=== PATIENT | male | born 1985 | race Hispanic/Latino ===

== ENCOUNTER 2016-12-09 10:12 | Emergency (ER) | payer OTHER ==
[~2016-12-09] VITALS: Ht 152.4 cm; Wt 63.0 kg
[~2016-12-09 10:12] MED LIST: ADVIL200 MG OR; AMOXICILLIN500 MG PO; AMOXIL875 MG OR; BACTRIM DS1 TAB OR; BENADRYL 50MG C50 MG OR; CIPRO500 MG OR; LORTAB 5 OR; MEDDOSEPAK OR; MIRALAX3350 N1 PO; NAPROSYN375 MG PO; NAPROSYN500 MG OR; NAPROSYN500 MG PO; NO MEDS; ZOVIRAX200 MG OR
[2016-12-09] MEDS ORDERED: MOTRIN800 MG PO (11:11)
[2016-12-09] MEDS ORDERED: BACTRIM DS1 TAB PO (11:11)
[2016-12-09 11:15] VITALS: BP 121/85
== END 2016-12-09 11:23 | disposition home or self-care (01) | DRG 603 ==
LOC: ED 10:12
PROC: 0H9GXZZ Drainage of Left Hand Skin, External Approach (ICD-10-PCS; principal; 2016-12-09)
PROC: 0H9EXZZ Drainage of Left Lower Arm Skin, External Approach (ICD-10-PCS; 2016-12-09)
DX: L02.414 Cutaneous abscess of left upper limb (principal); L02.512 Cutaneous abscess of left hand

== ENCOUNTER 2017-01-11 00:07 | Emergency (ER) | payer OTHER ==
[~2017-01-11] VITALS: Ht 152.4 cm; Wt 60.0 kg
[~2017-01-11 00:07] MED LIST changes: +BACTRIM DS1 TAB PO; +MOTRIN800 MG PO
[2017-01-11 01:25] LABS: HEMATOCRIT 42.3 % (39.0-50.0); HEMOGLOBIN 14.5 g/dl (14.0-18.0); IMMATURE GRANULOCYTES 0.4 % (0.0-1.0); MEAN CELL VOLUME 82.1 fL CALC (80.0-100.0); MEAN CORPUSCULAR HGB 28.2 pG CALC (26.0-32.0); MEAN CORPUSCULAR HGB CONC 34.3 g/L CALC (32.0-36.0); NEUT# 8.56 thou/uL (1.82-7.42); RED BLOOD COUNT 5.15 mill/uL (4.70-6.10); RED CELL DISTRI WIDTH 12.7 % (11.5-15.5)
[2017-01-11 01:44] LABS: ALBUMIN 4.2 g/dL (3.2-5.0); ALKALINE PHOSPHATASE 70 u/l (38-126); ANION GAP 16 (6-22 (CALC)); BILIRUBIN, TOTAL 0.8 mg/dL (0.0-1.4); BUN 13 mg/dL (9-20); BUN/CREATININE RATIO 12 (12-20 (CALC)); CALCIUM 9.1 mg/dL (8.4-10.2); CARBON DIOXIDE 25 mmol/l (22-30); CHLORIDE 108 mmol/l (95-108); CREATININE 1.1 mg/dL (0.7-1.3); GFR > 60 ML/MIN (>=60 (CALC)); GFR FOR AFR.AMER. > 60 ML/MIN (>=60 (CALC)); GLUCOSE 86 mg/dL (75-110); POTASSIUM 3.8 mmol/l (3.5-5.1); SGOT/AST 34 u/l (17-59); SGPT/ALT 51 u/l (21-72); SODIUM 145 mmol/l (137-146); TOTAL PROTEIN 7.4 g/dL (6.3-8.2)
[2017-01-11 01:46] LABS: ETHYL ALCOHOL < 10 mg/dl (0-30)
[2017-01-11 03:22] LABS: URINE BILIRUBIN - DIPSTICK NEGATIVE (NEGATIVE); URINE BLOOD DIPSTICK NEGATIVE (NEGATIVE); URINE CLARITY CLEAR; URINE COLOR YELLOW; URINE GLUCOSE - DIPSTICK NEGATIVE (NEGATIVE); URINE KETONE NEGATIVE (NEGATIVE); URINE LEUK ESTERASE NEGATIVE (NEGATIVE); URINE NITRITE - DIPSTICK NEGATIVE (Negative); URINE PROTEIN - DIPSTICK NEGATIVE (NEG-TRACE); URINE SPECIFIC GRAVITY 1.025; URINE UROBILINOGEN - DIPSTICK 0.2 E.U./dL (0.2)
[2017-01-11 03:26] LABS: BARBITURATES NEGATIVE (NEGATIVE); COCAINE POSITIVE (NEGATIVE); METHADONE NEGATIVE (NEGATIVE); OXCYCODONE NEGATIVE (NEGATIVE); TETRAHYDROCANNABIONOL NEGATIVE (NEGATIVE); TRICYLIC ANTIDEPRESSANTS NEGATIVE (NEGATIVE)
[2017-01-11 14:31] VITALS: BP 111/74
== END 2017-01-11 14:00 | DRG 918 ==
LOC: ED 00:07
PROVIDERS: Emergency Medicine
DX: T44.3X2A Poisoning by other parasympatholytics [anticholinergics and antimuscarinics] and spasmolytics, intentional self-harm, initial encounter (principal); T43.292A Poisoning by other antidepressants, intentional self-harm, initial encounter; Y92.009 Unspecified place in unspecified non-institutional (private) residence as the place of occurrence of the external cause

== ENCOUNTER 2017-04-13 08:39 | Emergency (ER) | payer OTHER ==
[~2017-04-13] VITALS: Ht 152.4 cm; Wt 62.0 kg
[2017-04-13] MEDS ORDERED: PERCOCET 5/321 COMBO PO (08:58)
[2017-04-13] MEDS ORDERED: CLEOCIN300 MG PO (08:59)
[2017-04-13 09:10] VITALS: BP 119/57
== END 2017-04-13 09:10 | disposition home or self-care (01) | DRG 159 ==
LOC: ED 08:39
DX: K08.89 Other specified disorders of teeth and supporting structures (principal)

== ENCOUNTER 2017-05-22 13:08 | Emergency (ER) | payer OTHER ==
[~2017-05-22] VITALS: Ht 152.4 cm; Wt 56.2 kg
[~2017-05-22 13:08] MED LIST changes: +CLEOCIN300 MG PO; +PERCOCET 5/321 COMBO PO
[2017-05-22] MEDS ORDERED: MOTRIN800 MG PO (13:42)
[2017-05-22 14:33] VITALS: BP 125/55
== END 2017-05-22 14:36 | disposition home or self-care (01) | DRG 605 ==
LOC: ED 13:08
DX: S90.112A Contusion of left great toe without damage to nail, initial encounter (principal); W22.8XXA Striking against or struck by other objects, initial encounter; Y93.89 Activity, other specified; Y92.89 Other specified places as the place of occurrence of the external cause

== ENCOUNTER 2017-11-09 22:38 | Emergency (ER) | payer OTHER ==
[~2017-11-09] VITALS: Ht 152.4 cm; Wt 63.6 kg
[2017-11-09 23:34] VITALS: BP 112/73
== END 2017-11-09 23:34 | DRG 897 ==
LOC: ED 22:38
DX: F10.10 Alcohol abuse, uncomplicated (principal); Z02.89 Encounter for other administrative examinations

== ENCOUNTER 2019-06-30 22:28 | Emergency (ER) | payer SELFPAY ==
[~2019-06-30] VITALS: Ht 152.4 cm; Wt 65.9 kg
[2019-06-30 23:01] LABS: HEMATOCRIT 41.2 % (39.0-50.0); HEMOGLOBIN 14.3 g/dl (14.0-18.0); IMMATURE GRANULOCYTES 0.3 % (0.0-5.0); MEAN CORPUSCULAR HGB 27.8 pG CALC (26.0-32.0); MEAN CORPUSCULAR HGB CONC 34.7 g/L CALC (32.0-36.0); NEUT# 7.46 thou/uL (1.82-7.42); RED BLOOD COUNT 5.15 mill/uL (4.70-6.10); RED CELL DISTRI WIDTH 12.1 % (11.5-15.5)
[2019-06-30 23:18] LABS: ALBUMIN 4.2 g/dL (3.2-5.0); ALKALINE PHOSPHATASE 78 u/l (38-126); ANION GAP 13 (6-22 (CALC)); BILIRUBIN, TOTAL 0.7 mg/dL (0.0-1.4); BUN 9 mg/dL (9-20); BUN/CREATININE RATIO 11 (12-20 (CALC)); CARBON DIOXIDE 25 mmol/l (22-30); CHLORIDE 107 mmol/l (95-108); CREATININE 0.8 mg/dL (0.7-1.3); ETHYL ALCOHOL 0 mg/dl (0-30); GFR > 60 ML/MIN (>=60 (CALC)); GFR FOR AFR.AMER. > 60 ML/MIN (>=60 (CALC)); POTASSIUM 3.9 mmol/l (3.5-5.1); SGOT/AST 22 u/l (17-59); SODIUM 142 mmol/l (137-146); TOTAL PROTEIN 8.2 g/dL (6.3-8.2)
[2019-07-01 00:29] LABS: URINE BILIRUBIN - DIPSTICK NEGATIVE (NEGATIVE); URINE BLOOD DIPSTICK NEGATIVE (NEGATIVE); URINE COLOR YELLOW; URINE GLUCOSE - DIPSTICK NEGATIVE (NEGATIVE); URINE KETONE NEGATIVE (NEGATIVE); URINE LEUK ESTERASE NEGATIVE (NEGATIVE); URINE NITRITE - DIPSTICK NEGATIVE (Negative); URINE PH 6.5 (4.5-8.0); URINE PROTEIN - DIPSTICK NEGATIVE (NEG-TRACE); URINE UROBILINOGEN - DIPSTICK >=8.0 E.U./dL (0.2)
[2019-07-01 00:31] LABS: BARBITURATES NEGATIVE (NEGATIVE); COCAINE POSITIVE (NEGATIVE); METHADONE NEGATIVE (NEGATIVE); OXCYCODONE NEGATIVE (NEGATIVE); TETRAHYDROCANNABIONOL NEGATIVE (NEGATIVE); TRICYLIC ANTIDEPRESSANTS NEGATIVE (NEGATIVE)
[2019-07-01] MEDS ORDERED: TEGRETOL XR400 MG PO (02:01)
[2019-07-01] MEDS ORDERED: VALPROIC ACD250 M3 PO (02:01)
[2019-07-01 02:34] VITALS: BP 111/85
== END 2019-07-01 02:41 | disposition home or self-care (01) | DRG 101 ==
LOC: ED 22:28
PROVIDERS: Emergency Medicine
DX: R56.9 Unspecified convulsions (principal); F31.9 Bipolar disorder, unspecified; T42.1X6A Underdosing of iminostilbenes, initial encounter; T42.6X6A Underdosing of other antiepileptic and sedative-hypnotic drugs, initial encounter; Z91.128 Patient's intentional underdosing of medication regimen for other reason

== ENCOUNTER 2020-09-18 16:46 | Emergency (ER) | payer SELFPAY ==
[~2020-09-18] VITALS: Ht 152.4 cm; Wt 59.1 kg
[~2020-09-18 16:46] MED LIST changes: +TEGRETOL XR400 MG PO; +VALPROIC ACD250 M3 PO
[2020-09-18 18:18] LABS: HEMATOCRIT 43.2 % (39.0-50.0); HEMOGLOBIN 14.7 g/dl (14.0-18.0); IMMATURE GRANULOCYTES 0.5 % (0.0-5.0); MEAN CELL VOLUME 83.6 fL CALC (80.0-100.0); MEAN CORPUSCULAR HGB 28.4 pG CALC (26.0-32.0); NEUT# 12.14 thou/uL (1.82-7.42); RED BLOOD COUNT 5.17 mill/uL (4.70-6.10); RED CELL DISTRI WIDTH 13.2 % (11.5-15.5)
[2020-09-18 18:38] LABS: ALBUMIN 4.3 g/dL (3.2-5.0); ALKALINE PHOSPHATASE 81 u/l (38-126); ANION GAP 12 (6-22 (CALC)); BILIRUBIN, TOTAL 0.6 mg/dL (0.0-1.4); BUN 15 mg/dL (9-20); BUN/CREATININE RATIO 19 (12-20 (CALC)); CARBON DIOXIDE 22 mmol/l (22-30); CHLORIDE 104 mmol/l (95-108); CREATININE 0.8 mg/dL (0.7-1.3); GFR > 60 ML/MIN (>=60 (CALC)); GFR FOR AFR.AMER. > 60 ML/MIN (>=60 (CALC)); POTASSIUM 3.7 mmol/l (3.5-5.1); SGOT/AST 36 u/l (17-59); SODIUM 135 mmol/l (137-146); TOTAL PROTEIN 7.3 g/dL (6.3-8.2)
[2020-09-18 18:58] VITALS: BP 123/89
== END 2020-09-18 18:58 | DRG 87 ==
LOC: ED 16:46
PROVIDERS: Family Medicine
DX: S06.4X1A Epidural hemorrhage with loss of consciousness of 30 minutes or less, initial encounter (principal); S01.91XA Laceration without foreign body of unspecified part of head, initial encounter; F31.9 Bipolar disorder, unspecified; Y00.XXXA Assault by blunt object, initial encounter
CPT/HCPCS: J1953

== ENCOUNTER 2020-10-14 17:55 | Emergency (ER) | payer SELFPAY ==
[~2020-10-14] VITALS: Ht 152.4 cm; Wt 61.0 kg
[2020-10-14 18:45] VITALS: BP 126/78
== END 2020-10-14 18:45 | disposition home or self-care (01) | DRG 950 ==
LOC: ED 17:55
DX: S01.90XD Unspecified open wound of unspecified part of head, subsequent encounter (principal); X58.XXXD Exposure to other specified factors, subsequent encounter

== ENCOUNTER 2021-03-15 10:54 | Emergency (ER) | payer SELFPAY ==
[~2021-03-15] VITALS: Ht 152.4 cm; Wt 60.0 kg
[2021-03-15 12:25] VITALS: BP 109/65
== END 2021-03-15 12:30 | disposition home or self-care (01) | DRG 153 ==
LOC: ED 10:54
DX: J06.9 Acute upper respiratory infection, unspecified (principal); F31.9 Bipolar disorder, unspecified; Z20.822 Contact with and (suspected) exposure to COVID-19

== ENCOUNTER 2022-07-16 15:56 | Emergency (ER) | payer SELFPAY ==
[2022-07-16 16:34] VITALS: BP 128/77
[2022-07-16 17:01] VITALS: BP 106/71
[2022-07-16 17:15] VITALS: BP 106/71
== END 2022-07-16 17:15 | disposition home or self-care (01) | DRG 951 ==
LOC: ED 15:56 → LWOBS 17:11 → ED 17:11
DX: Z53.29 Procedure and treatment not carried out because of patient's decision for other reasons (principal)

== ENCOUNTER 2022-11-13 13:25 | Emergency (ER) | payer SELFPAY ==
[~2022-11-13] VITALS: Ht 152.4 cm; Wt 63.5 kg
[2022-11-13] VITALS (13 sets, daily range): BP systolic 94–112; BP diastolic 46–83
== END 2022-11-13 17:35 | disposition home or self-care (01) | DRG 563 ==
LOC: ED 13:25
PROC: 2W3LX1Z Immobilization of Right Lower Extremity using Splint (ICD-10-PCS; principal; 2022-11-13)
DX: S93.401A Sprain of unspecified ligament of right ankle, initial encounter (principal); W50.2XXA Accidental twist by another person, initial encounter

== ENCOUNTER 2024-10-01 19:18 | Emergency (ER) | payer SELFPAY ==
[2024-10-01] VITALS (9 sets, daily range): BP systolic 99–117; BP diastolic 65–82
[~2024-10-01] VITALS: Ht 152.4 cm; Wt 61.0 kg
[~2024-10-01 19:18] MED LIST changes: +AMOX/K CLAV875 M1 PO
[2024-10-01] MEDS ORDERED: SODIUM CHLORIDE 0.9% 1,000 ML IV ONE (19:55)
[2024-10-01] MEDS ORDERED: ONDANSETRON HCl 4 MG/2 ML SDV IV ONE (19:55)
[2024-10-01] MEDS ORDERED: KETOROLAC TROMETHAMINE 30 MG/ML SDV IV ONE (19:55)
[2024-10-01 20:18] LABS: BASO% 0.3 % (0-3); EOS% 12.9 % (0-8); HEMATOCRIT 44.1 % (39.0-50.0); HEMOGLOBIN 15.5 g/dl (14.0-18.0); IMMATURE GRANULOCYTES 0.1 % (0.0-5.0); LYMPH% 18.1 % (15-41); MEAN CELL VOLUME 83.4 fL CALC (80.0-100.0); MEAN CORPUSCULAR HGB 29.3 pG CALC (26.0-32.0); MEAN CORPUSCULAR HGB CONC 35.1 g/dL CAL (32.0-36.0); MONO% 5.2 % (2-13); NEUT# 7.13 thou/uL (1.82-7.42); NEUT% 63.4 % (42-76); RED BLOOD COUNT 5.29 mill/uL (4.70-6.10); RED CELL DISTRI WIDTH 12.2 % (11.5-15.5)
[2024-10-01 20:22] LABS: URINE BLOOD DIPSTICK Negative (NEGATIVE); URINE GLUCOSE - DIPSTICK Negative (NEGATIVE); URINE KETONE 15 mg/dL (NEGATIVE); URINE NITRITE - DIPSTICK Negative (Negative); URINE PH 5.5 (4.5-8.0); URINE PROTEIN - DIPSTICK Trace mg/dL (NEG-TRACE); URINE SPECIFIC GRAVITY 1.025
[2024-10-01 20:25] LABS: URINE COLOR Yellow; URINE LEUK ESTERASE Moderate (NEGATIVE)
[2024-10-01 20:30] LABS: ALBUMIN 4.5 g/dL (3.2-5.0); POTASSIUM 4.1 mmol/l (3.5-5.1); TOTAL PROTEIN 7.6 g/dL (6.3-8.2)
[2024-10-01 20:31] LABS: BILIRUBIN, TOTAL 1.1 mg/dL (0.2-1.3)
[2024-10-01 20:34] LABS: URINE BACTERIA MANY hpf; URINE WBC 20-50 WBC/hpf (0-5)
[2024-10-01] MEDS ORDERED: KEFLEX500 MG PO (20:44)
[2024-10-01] MEDS ORDERED: ONDANSETRON4 MG PO (20:44)
== END 2024-10-01 22:10 | disposition home or self-care (01) | DRG 690 ==
LOC: ED 19:18
PROVIDERS: Family Medicine
DX: N39.0 Urinary tract infection, site not specified (principal); K52.9 Noninfective gastroenteritis and colitis, unspecified; F31.9 Bipolar disorder, unspecified; B96.20 Unspecified Escherichia coli [E. coli] as the cause of diseases classified elsewhere
CPT/HCPCS: J2405

== ENCOUNTER 2024-10-06 10:29 | Emergency (ER) | payer SELFPAY ==
[2024-10-06] VITALS (39 sets, daily range): BP systolic 82–165; BP diastolic 50–121
[~2024-10-06] VITALS: Ht 152.4 cm; Wt 61.2 kg
[~2024-10-06 10:29] MED LIST changes: +KEFLEX500 MG PO; +ONDANSETRON4 MG PO
[2024-10-06] MEDS ORDERED: Diph, Acellular Pertussis, Tet 0.5 ML/VIAL (Tdap) SDV IM ONE (10:35)
[2024-10-06 11:05] LABS: BASO% 0.2 % (0-3); EOS% 4.1 % (0-8); HEMATOCRIT 40.4 % (39.0-50.0); IMMATURE GRANULOCYTES 0.1 % (0.0-5.0); LYMPH% 18.1 % (15-41); MEAN CORPUSCULAR HGB 28.7 pG CALC (26.0-32.0); MEAN CORPUSCULAR HGB CONC 34.7 g/dL CAL (32.0-36.0); MONO% 6.6 % (2-13); NEUT# 7.29 thou/uL (1.82-7.42); NEUT% 70.9 % (42-76); RED BLOOD COUNT 4.87 mill/uL (4.70-6.10); RED CELL DISTRI WIDTH 12.3 % (11.5-15.5)
[2024-10-06 11:25] LABS: ALBUMIN 4.4 g/dL (3.2-5.0); ALKALINE PHOSPHATASE 87 u/l (38-126); ANION GAP 15 (6-22 (CALC)); BILIRUBIN, TOTAL 0.9 mg/dL (0.2-1.3); BUN 6 mg/dL (9-20); BUN/CREATININE RATIO 6 (12-20 (CALC)); CARBON DIOXIDE 23 mmol/l (22-30); CHLORIDE 107 mmol/l (95-108); ESTIMATED GFR 99 ML/MIN (>=90 (CALC)); ETHYL ALCOHOL 0 mg/dl (0-30); POTASSIUM 3.9 mmol/l (3.5-5.1); SGOT/AST 34 u/l (17-59); SODIUM 140 mmol/l (137-146); TOTAL PROTEIN 7.3 g/dL (6.3-8.2)
[2024-10-06] MEDS ORDERED: DiphenhydrAMINE HCL 50 MG/ML SDV IM ONE (12:35)
[2024-10-06] MEDS ORDERED: HALOPERIDOL LACTATE 5 MG/ML SDV IM ONE (12:35)
[2024-10-06] MEDS ORDERED: LORazepam 2 MG/ML IM ONE (12:35)
[2024-10-06] MEDS ORDERED: MIDAZOLAM HCL 2 MG/2 ML VIAL IM ONE (12:40)
== END 2024-10-06 21:59 | DRG 605 ==
LOC: ED 10:29
PROVIDERS: Family Medicine
DX: S10.91XA Abrasion of unspecified part of neck, initial encounter (principal); S30.811A Abrasion of abdominal wall, initial encounter; F31.9 Bipolar disorder, unspecified; F15.90 Other stimulant use, unspecified, uncomplicated; X78.8XXA Intentional self-harm by other sharp object, initial encounter; Z20.822 Contact with and (suspected) exposure to COVID-19; Z78.1 Physical restraint status
CPT/HCPCS: 90715; J1200; J1630